=== PATIENT | female | born 1950 | race Two or more races ===

== ENCOUNTER 2024-06-01 06:28 | Day surgery (SDC) | payer BC ==
[~2024-06-01] VITALS: Ht 154.9 cm; Wt 65.8 kg
[~2024-06-01 06:28] MED LIST: ATOR20TA PO; CALC-312 PO; CARB45TA PO; CHOL200031 PO; ESCI5TAB PO; GABA-1250 PO; LISI40TA16 PO; METH50006 SL; OMEP20TA PO
[2024-06-01] MEDS ORDERED: SUCCINYLCHOLINE CHLORIDE 20 MG/ML 10ML VIAL IV ONE (06:44)
[2024-06-01] MEDS ORDERED: ROCURONIUM 10MG/ML 10ML VIAL IV ONE (06:44)
[2024-06-01] MEDS ORDERED: MIDAZOLAM HCL 2MG/2ML 2ml VIAL (1mg/ml) ONE (06:47)
[2024-06-01] MEDS ORDERED: SODIUM CHLORIDE LOCK 10 ML ONE (06:47)
[2024-06-01] MEDS ORDERED: KETAMINE 50mg/ML 10ml Vial 10 ML ONE (06:47)
[2024-06-01] MEDS ORDERED: NEOSTIGMINE 1 MG/ML INJ (10mg/10ML VIAL) ONE (06:47)
[2024-06-01] MEDS ORDERED: GLYCOPYRROLATE 0.2 MG/ML 1ML VIAL ONE (06:47)
[2024-06-01] MEDS ORDERED: MEPERIDINE HCL (50 MG/ML) 1 ML VIAL ONE ×2 (06:47→10:54)
[2024-06-01] MEDS ORDERED: DexAMETHasone SOD PHOS 10MG/1ML VIAL INJ ONE (06:47)
[2024-06-01] MEDS ORDERED: LIDOCAINE 1% INJ PF 5ML AMP ONE (06:47)
[2024-06-01] MEDS ORDERED: ONDANSETRON HCL 4 MG/2 ML VIAL ONE (06:47)
[2024-06-01] MEDS ORDERED: fentaNYL CITRATE 100 MCG/2 ML VL ONE ×2 (06:47→10:06)
[2024-06-01] MEDS ORDERED: LIDOCAINE HCL 2% TOP JELLY 5ML TOP ONE (06:47)
[2024-06-01] MEDS ORDERED: PROPOFOL 10 MG/ML 20 ML IV ONE (06:47)
[2024-06-01] MEDS ORDERED: TRANEXAMIC ACID 20 ML ONE (06:57)
[2024-06-01] MEDS ORDERED: KETOROLAC TROMETH 30 MG/ML 1ML VIAL ONE (06:59)
[2024-06-01] MEDS ORDERED: ceFAZolin 2 GM/D5W100ml 100 ML IV ONE (07:00)
[2024-06-01] MEDS ORDERED: VANCOMYCIN HCL 1000 MG VL ONE ×2 (07:20→10:50)
[2024-06-01] MEDS: BUPIVACAINE 0.25% INJ 50ML VIAL ONE (08:59)
[2024-06-01] MEDS: EPINEPHrine HCL 1 MG/1 ML AMP ONE (09:01)
[2024-06-01] MEDS: KETOROLAC TROMETH 30 MG/ML 1ML VIAL IV ONE ×2 (09:02→11:56)
[2024-06-01] MEDS: MORPHINE SULF PF 5 MG/10 ML VIAL ONE (09:02)
[2024-06-01 11:21] VITALS: PULSE 80; RESP 15; TEMP 97.5; O2SAT 94
[2024-06-01 11:30] VITALS: PULSE 79; RESP 17; O2SAT 98
[2024-06-01] MEDS ORDERED: METOCLOPRAMIDE HCL 5MG/ml INJ 2ml VIAL IV ONE (11:30)
[2024-06-01] MEDS ORDERED: fentaNYL CITRATE 100 MCG/2 ML VL IV PRN (11:30)
[2024-06-01] MEDS ORDERED: HYDROmorphone HCL 2 MG/ML VL/or syr IV PRN (11:30)
[2024-06-01] MEDS ORDERED: MORPHINE SULFATE INJ 2 MG/ml SYRG IV PRN (11:30)
--- NOTE | 2024-06-01 11:36 | DVHOP2 ---
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 These include but are not limited to complications of anesthesia, postoperative infection, incomplete relief of symptoms, recurrence of symptoms, damage to blood vessels, nerves and tendons, deep venous thrombosis, pulmonary embolism and possible need for repeat surgery in the future. Complications: None Estimated Blood Loss: 100 mL Indications for Surgery: The patient is a 73-year-old female who presented to the clinic with a history of old malunited proximal humerus fracture. Nonoperative and operative management options were discussed after thorough failure of conservative management. She continued to have pain. There was evidence of glenohumeral arthritis with large inferior humeral head osteophyte. Benefits, risks and treatment alternatives were discussed. Pros and cons of surgery were discussed. Specific complications of the surgery such as dislocations, infections, arthrofibrosis, neurovascular injury, loss of limb or life were discussed. The patient decided to proceed with the surgical option. Name of Procedure Performed Right reverse total shoulder arthroplasty with open biceps tenodesis Procedure Details Procedure Details: The patient was identified in the preoperative holding area and the surgical site was marked. The consent was verified. The patient was brought into the operating room and placed supine on the operating table. General anesthesia was administered. The patient was brought into the beachchair position at 45 degrees angle. The extremity was prepped and draped in the usual sterile manner with Betadine and ChloraPrep. A timeout was called out to confirm the identity of the patient, the nature of surgery, the site of surgery, development of implants and x-rays and allergies to medications. All the bony prominences were appropriately padded Exposure: A standard deltopectoral approach was used. An incision was made from the superior portion of the coracoid to the upper arm lateral to the axillary line. The skin and the subcutaneous tissue were dissected. The deep fascia was incised. The cephalic vein was identified. The coracoid was identified and the conjoined tendon was also identified. The pectoralis tendon, approximately 1 cm was released. The biceps tendon was identified and tenodesis was carried out. This was sutured to the pectoralis major tendon with the help of FiberWire suture and was cut proximally. Hernandez retractors were inserted. Adequate exposure was noted. The deltoid was released with the help of a Wisdom elevator for better exposure. The subscapularis tendon was identified. The subscapularis tendon was released. Circumflex arteries and veins were coagulated. This was whipstitched for later identification and possible repair. The humeral head was now exposed with external rotation and release of the inferior capsule. This was gently dislocated using a Darrach retractor. Significant arthritis with full-thickness cartilage defect was noted. Significant osteophytes were also noted. A retractor was inserted below the CA ligament as well. There was a partial tear of supraspinatus and infraspinatus with some footprint exposed. Humeral cut: The retroversion was set to 30 degrees. An external guide was used and affixed to the bone with the help of guide pins. Next, a saw was used to create the humeral cut. This was just above the rotator cuff footprint. However it was noted that there was significant malunion of the proximal humerus and I decided to revise the cut with the help of an intramedullary guide due to distorted anatomy. An intramedullary guide was inserted. The cutting guide was inserted and affixed with pins. Next a saw was used again to go slightly lower. The rotator cuff and the greater tuberosity were preserved for now. Large inferior humeral head osteophyte was noted, that was removed with the help of a rongeur. Significant varus malunion was also noted with humeral head cartilage all the way to the inferior portion. The capsule over this was gradually released with constant attention and protection of the axillary nerve. Glenoid exposure and implantation of glenoid prosthesis: A Darrach retractor was then inserted to retract the humeral head and expose the glenoid. Release of the anterior and posterior capsule was carried out. Release of the middle and inferior glenohumeral ligament was carried out. Superior labrum and biceps were removed. Significant cartilage damage of the glenoid was noted. Minimal retroversion was noted. A tug test was performed to confirm the position of the axillary nerve which was out of the surgical field. Significant hypertrophy of the inferior capsule was noted and a partial capsulectomy was performed as well. Care was taken to palpate the axillary nerve at regular intervals. Next, the center of the glenoid was marked with the help of a Bovie using the biceps and the coracoid as landmarks. Next a guide was inserted, a guidewire was inserted through the central portion. This was found to be in anatomic location, slightly inferior to the center. Next the central reamer was inserted. Next t he hand-held peripheral reamer was inserted. The periphery was reamed, minimal cartilage was removed. Appropriate soft tissue resection was carried out. Minimal cartilage was removed to preserve the underlying bone. Next the baseplate was inserted with the help of an helicopter repairer A central post was applied to the final implant on the back table and inserted with gentle taps. It was rotated to align the screws in the appropriate directions. Next a drill guide was used to drill the hole for the screws. Locking and nonlocking screws were used for excellent compression and fixation. The glenosphere was now implanted on top of the baseplate over the guidewire with the screw. The screw was rotated over the glenosphere for excellent fixation. No impingement was noted. A Triston was used to test the stability of baseplate as well as the glenosphere and was found to be very secure. The proximal humerus malunion was noted. This was in varus. The cut had to be revised. The greater tuberosity malunited portion was addressed as well. It was noted that the rotator cuff tendons were still attached especially posteriorly, with the supraspinatus had to be released along with the lateral most portion of the greater tuberosity. Next, a trial stem was inserted from th e lateral most position. Next, a provisional soft tissue tensioning assessment was done with an attempt to reduce with a 3 mm trial liner. This was found to be adequate with 1 mm of shuck. The final stem and liner was opened up. This was inserted. It had good proximal metaphyseal fixation. However due to the malunion and the additional humeral head cut that was needed, I decided to supplement this fixation with two screws through the stem. A special jig was used. Next an incision was made over the lateral part of the humerus. A hemostat was used to ensure that there is no axillary nerve in the dissection. Next the drill guide was inserted and the screw was inserted both proximally and distally into the stem for excellent fixation. The joint was now trialed again with a 3 mm liner and was noticed to be excellent. However, due to the malunion, it was noted that the stem was in slight varus so I decided to use of 145 degree final liner implant. A final retentive 3 mm implant was opened up and inserted on the humeral stem. This was tapped and excellent fixation was noted. Excellent stability and range of motion was noted, abduction of 120 and flexion up to 120 degrees. The shoulder did not dislocate with adduction, internal rotation and extension or with abduction and external rotation. Shuck test was acceptable with approximately 1 mm of gap with manual longitudinal trac tion. The fixation was tested with the help of a Triston clamp. Excellent fixation was noted. Irrigation was given with bulb syringe lavage with bacitracin and normal saline, Betadine and vancomycin powder was applied as well. All bony debris was also removed. C-arm was used throughout the procedure for evaluation of guidewire, humeral cut, base plate and glenosphere position and also the final prosthesis Significant extra time and effort were needed because of the proximal malunion, distorted anatomy and realization of the malunion. The stem had to be modified and the canal had to be opened up repeatedly to ensure that the stem is well seated. Screws had to be also inserted through the stem for additional fixation although the proximal metaphysis did have good fixation. The subscapularis was approximated with the help of looped Ethibond sutures through the bone tunnel. Some approximation was noted. The deep tissue, skin and the subcutaneous tissue were closed with 0 Vicryl, 2-0 Vicryl, 3-0 Monocryl and marcelle. Sterile dressing was applied. The patient was placed in a shoulder immobilizer. Condition Good Disposition Home KATE RANKIN MD Jun 01, 2024 11:36
--- NOTE | 2024-06-01 11:40 | DVH ---
FLUOROSCOPY TIME: 16 seconds TECHNIQUE: Intraoperative radiographs of the right shoulder were obtained. COMPARISON: None FINDINGS: Refer to intraoperative report for further evaluation. IMPRESSION: Refer to intraoperative report for further evaluation.
--- NOTE | 2024-06-01 11:40 | DVH ---
FLUOROSCOPY TIME: 16 seconds TECHNIQUE: Intraoperative radiographs of the right shoulder were obtained. COMPARISON: None FINDINGS: Refer to intraoperative report for further evaluation. IMPRESSION: Refer to intraoperative report for further evaluation.
[2024-06-01] MEDS: HYDROmorphone HCL 2 MG/ML VL/or syr IV PRN (12:23)
[2024-06-01 12:50] VITALS: BP 120/57; PULSE 72; RESP 12; O2SAT 92
== END 2024-06-01 13:52 | disposition home or self-care (01) ==
LOC: SUR 06:28
PROVIDERS: ATTEND Orthopaedic Surgery Sports Medicine
DX: M19.011 Primary osteoarthritis, right shoulder (principal); S42.201P Unspecified fracture of upper end of right humerus, subsequent encounter for fracture with malunion; X58.XXXD Exposure to other specified factors, subsequent encounter; M25.711 Osteophyte, right shoulder; Z98.890 Other specified postprocedural states
CPT/HCPCS: 23474; 24340; 73020; 86850; 86900; 86901; C1713; C1776; J0171; J0330; J1100; J1171; J1885; J2175; J2250; J2270; J2405; J2704; J3010; J3370; 76000; A4565; J3490